=== PATIENT | female | born 1990 | race American Indian/Alaskan Native ===

== ENCOUNTER 2018-12-20 01:36 | Emergency (ER) | payer SELFPAY ==
[2018-12-20 03:10] LABS: HCG Qualitative,Urine Positive (Negative)
--- NOTE | 2018-12-20 03:49 | Emergency Department Report ---
Vomiting/Diarrhea - HPI Chief Complaint: Nausea/Vomiting/Diarrhea Stated Complaint: VOMITING Time Seen by Provider: 12/20/18 03:06 Duration: 3 Days Severity: severe Nausea/Vomiting Severity: Moderate Diarrhea Severity: None Pain Location: Other (no pain) Pain Severity: None Symptoms: No Watery Diarrhea, No Bloody diarrhea, No Fever, No Able to Tolerate Fluids, No Recent Unusual Foods, No Recent Untreated Water, No Recent use of Antibiotics, No Family w/ Similar Symptoms, No Contacts w/ Similar Symptoms, No Rash, No Hematuria, No Recent URI Symptoms (patient thinks she is ) Other History: This is a 28-year-old female here reports that she has been having vomiting for the last couple days and her last menstrual period was 11/04/2018. She denies any abdominal or back pain or any urinary burning, frequency or urgency. Denies any vaginal bleeding or discharge. This is her third and she states that she had one miscarriage and one in the past. She says she has not taken a test. Denies any cough, chest pain or shortness of breath. She denies any medical problems. She said that she just has not been able to keep anything down for the last couple days and she has been feeling weak over the last 2-3 days. No medication taken prior to coming to the emergency room. Denies any diarrhea or any blood in her vomit or stool ED Review of Systems ROS: Stated complaint: VOMITING Other details as noted in HPI Constitutional: denies: chills, fever ENT: denies: throat pain, congestion Respiratory: denies: cough, shortness of breath, wheezing Cardiovascular: denies: chest pain, palpitations, dyspnea on exertion, edema, syncope, paroxysmal nocturnal dyspnea Gastrointestinal: nausea, vomiting. denies: abdominal pain, diarrhea, constipation, hematemesis, hematochezia Genitourinary: abnormal menses. denies: urgency, dysuria, frequency, hematuria, discharge, dyspareunia Musculoskeletal: denies: back pain, joint swelling, arthralgia, myalgia Skin: denies: rash Neurological: denies: headache ED Past Medical Hx - Past Medical History Previous Medical History?: No - Surgical History Past Surgical History?: No - Family History Family history: hypertension - Social History Smoking Status: Never Smoker Substance Use Type: None - Medications Home Medications: Home Medications Medication Instructions Recorded Confirmed Last Taken Type Ondansetron [Zofran Odt] 4 mg PO Q8HR PRN #14 tab.rapdis 12/20/18 Unknown Rx Vit-Fe Fumar-FA [ 1 tab PO QDAY #30 tablet 12/20/18 Unknown Rx Vitamin] Vomiting Diarrhea Exam - Exam General: Vital signs noted. No distress. Alert and acting appropriately. This is a 28-year-old female well-nourished well-developed in no acute distress. HEENT: No Pharyngeal Erythema, No Pharyngeal Exudates, No Moist Mucous Membranes (dry), No Rhinorrhea, No Conjuctival Injection, No Frontal Tenderness, No Maxillary Tenderness Neck: No Adenopathy (supple, full range of motion and no C-spine tenderness), No Rigidity Lungs: Yes Clear Lung Sounds, No Good Air Exchange, No Wheezes, No Stridor, No Cough, No Nasal Flaring, No Retractions, No Use of Accessory Muscles Heart exam: Regular: Yes, Murmur: No, Tachycardia: No Abdomen: Tenderness: Yes (nontender to palpate in all quadrants.), Peritoneal Signs: No, Distention: No, Hyperactive Bowel sounds: No (normal bowel sounds in all quadrants) Skin exam: Rash: No, Edema: No, Normal turgor: Yes (clean dry and intact and no rash or lesions) Neurologic: Alert and oriented 3, no deficits. Musculoskeletal: Unremarkable. No cce. + 2 pulses in all extremities, no neurovascular compromise ED Course Vital Signs 12/20/18 12/20/18 01:45 02:19 Temperature 98.6 F 98.6 F Pulse Rate 70 74 Respiratory 18 18 Rate Blood Pressure 140/86 140/86 O2 Sat by Pulse 100 100 Oximetry - Reevaluation(s) Reevaluation #1: 12/20/18 06:11 Patient had 1 L of IV fluid normal saline emergency room, Zofran 4 mg IV and she reports that her nausea is relieved. She is not having any abdominal pain. BMP is stable except for sodium was mildly low at 134 and she got 1 L of normal saline for suspect that we will normalize. Urinalysis was contaminated but no signs of bacteria. Ketones is at 80 and patient with dehydration in . ED Medical Decision Making - Lab Data Result diagrams: 12/20/18 04:35 Lab Results 12/20/18 12/20/1819 Range/Units 02:50 02:50 04:35 Sodium 134 L (137-145) mmol/L Potassium 4.0 (3.6-5.0) mmol/L Chloride 104.1 (98-107) mmol/L Carbon Dioxide 19 L (22-30) mmol/L Anion Gap 15 mmol/L BUN 6 L (7-17) mg/dL Creatinine 0.4 L (0.7-1.2) mg/dL Estimated GFR > 60 ml/min BUN/Creatinine Ratio 15 % Glucose 82 (65-100) mg/dL Calcium 9.1 (8.4-10.2) mg/dL Urine Color Mera (Yellow) Urine Turbidity Cloudy (Clear) Urine pH 8.0 H (5.0-7.0) Ur Specific [place] 1.027 (1.003-1.030) Urine Protein 100 mg/dl (Negative) mg/dL Urine Glucose (UA) Neg (Negative) mg/dL Urine Ketones 80 (Negative) mg/dL Urine Blood Neg (Negative) Urine Nitrite Neg (Negative) Urine Bilirubin Neg (Negative) Urine Urobilinogen < 2.0 (<2.0) mg/dL Ur Leukocyte Esterase Neg (Negative) Urine WBC (Auto) 4.0 (0.0-6.0) /HPF Urine RBC (Auto) 5.0 (0.0-6.0) /HPF U Epithel Cells (Auto) 38.0 H (0-13.0) /HPF Urine Mucus 3+ /HPF Urine HCG, Qual Positive A (Negative) - Medical Decision Making This is a 28-year-old female who came to the hospital due to nausea and vomiting over the last 3 days. Patient has not had her period since 11/04/2018 and believed that she might be . Urinalysis showed a patient with ketone of 18 which is dehydration. Her sodium was 134 which is mildly decreased and she received 1 L of normal saline and 4 mg of Zofran IV which relieved her nausea. She says she is feeling a lot better she is up and ambulating and she is able to tolerate water without any nausea or vomiting. I discussed the patient and her laboratory results and diagnosis and referred her to [facility] to follow up in 2-3 days and discussed with her that if she develops abdominal pain, vaginal bleeding or discharge to return to the emergency room [id number] otherwise follow up with [facility] for care. Critical care attestation.: If time is entered above; I have spent that time in minutes in the direct care of this critically ill patient, excluding procedure time. ED Disposition Clinical Impression: Dehydration during , Nausea and vomiting during Disposition: - TO HOME OR SELFCARE Is pt being admited?: No Does the pt Need Aspirin: No Condition: Stable Instructions: Dehydration (ED), (ED), Acute Nausea and Vomiting (ED) Additional Instructions: Please increase her fluid intake to at least 2-3 L of water, Gatorade or Pedialy te to prevent dehydration. Takes Zofran as prescribed for nausea [facility] in 2-3 days. Increase fluid intake Follow-up with [facility] as instructed to start care and he can start vitamin but unsure you take this with food. Avoid eating spicy food, caffeinated and carbonated beverages. [facility] - 12/22/18 JANINA BISWAS MD [Staff Physician] - 12/22/18 Forms: Work/School Release Form(ED)
[2018-12-20] MEDS ORDERED: ZOFRAN IV ONE (03:58)
[2018-12-20] MEDS ORDERED: NACL 0.9% 1000 ML 1,000 ML IV ONE (03:58)
[2018-12-20 04:16] LABS: Bilirubin,Urine NEG (Negative); Blood,Urine NEG (Negative); Color,Urine Amber (Yellow); Mucus,Urine 3+ /HPF; Urobilinogen,Urine < 2.0 mg/dL (<2.0)
[2018-12-20 04:57] LABS: BUN/Creatinine Ratio 15; Blood Urea Nitrogen 6 mg/dL (7-17); Calcium 9.1 mg/dL (8.4-10.2); Hemolysis Index 56
[2018-12-20 15:00] VITALS: BP 122/62
== END 2018-12-20 06:42 | disposition home or self-care (01) ==
LOC: ED 01:36
DX: O21.9 Vomiting of pregnancy, unspecified (principal); E86.0 Dehydration; Z3A.01 Less than 8 weeks gestation of pregnancy
CPT/HCPCS: 36415; 80048; 81001; 81025; 96361; 96374; 99283; J2405; J7030